=== PATIENT | male | born 1985 | race Caucasian/White ===

== ENCOUNTER → 2023-04-12 | Outpatient (CLI) | payer BC ==
--- NOTE | 2023-04-12 08:03 | US ---
EXAMINATION TYPE: US liver DATE OF EXAM: 04/12/2023 COMPARISON: NONE CLINICAL INDICATION: Male, 37 years old with history of R74.01 ELEVATION OF LEVELS OF LIVER; LFTs TECHNIQUE: Multiple sonographic images of the right upper quadrant are obtained. FINDINGS: EXAM MEASUREMENTS: Liver Length: 16.0 cm Gallbladder Wall: 0.1 cm CBD: 0.3 cm Right Kidney: 10.8x5.9x5.9 cm [employer] NOTES: Pancreas: partially obscured by bowel Liver: upper limits, increased echogenicity and attenuation. Fatty sparring near GB Gallbladder: wnl Evidence for sonographic Ewdards's sign: No CBD: wnl, poorly visualized Right Kidney: wnl Exam slightly limited by bowel, body habitus, and attenuation from the liver The visualized portions of anchors unremarkable. There is partially obscured by overlying bowel gas. The liver demonstrates increased echogenicity with fatty sparing in the gallbladder. This limits sens itivity for intrahepatic masses. No gross evidence of intrahepatic mass. No intrahepatic biliary duct dilatation. Gallbladder is unremarkable without evidence of stones, wall thickening, or surrounding fluid. Negative sonographic Edwards's sign. Common bile duct is within normal limits. Right kidney dem onstrates no evidence for hydronephrosis, nephrolithiasis, or solid mass. IMPRESSION: 1. No acute process. 2. Hepatic steatosis.
== END | disposition home or self-care (01) ==
LOC: RADUSWWP 07:06
PROVIDERS: ATTEND Family Medicine
DX: K76.0 Fatty (change of) liver, not elsewhere classified (principal); R74.01 Elevation of levels of liver transaminase levels
CPT/HCPCS: 76705